=== PATIENT | female | born 1950 | race Caucasian/White ===

== ENCOUNTER 2021-05-15 13:28 | Emergency (ER) | payer MEDICARE ==
[~2021-05-15] VITALS: Ht 154.9 cm; Wt 72.3 kg
[2021-05-15] MEDS ORDERED: SIMVASTATIN40 MG PO (14:46)
[2021-05-15] MEDS ORDERED: CALCIUM + D SO1 EACH PO (14:46)
--- NOTE | 2021-05-15 17:45 | NUR ---
Zio monitor applied without difficulty. Patient verbalized understanding of instructions. Registered with [employer].
--- NOTE | 2021-05-15 21:19 | EKG ---
[facility] [address] [facility] [place], [place] [address] Signed Sinus bradycardia with marked sinus arrhythmia Otherwise normal ECG No previous ECGs available Confirmed by KESHA BLACK DO ([id number]) on 05/15/2021 9:19:21 PM Electronically Signed By: KESHA BLACK DO 05/15/212118 PATIENT NAME: EBONI BENJAMIN STEVE Electrocardiogram DATE OF : 50 PHYSICIAN: KESHA BLACK DO REPORT #: [id number] REPORT IS CONFIDENTIAL AND NOT TO BE RELEASED WITHOUT AUTHORIZATION
== END 2021-05-15 17:53 | disposition home or self-care (01) ==
LOC: ED 13:28
DX: R55 Syncope and collapse (principal); Z79.899 Other long term (current) drug therapy
CPT/HCPCS: 80053; 84484; 85025; 93005; 93010; 99284-25

== ENCOUNTER 2024-10-25 02:48 | Emergency (ER) | payer MEDICARE ==
[~2024-10-25] VITALS: Ht 154.9 cm; Wt 58.8 kg
[~2024-10-25 02:48] MED LIST: CALCIUM + D SO1 EACH PO; SIMVASTATIN40 MG PO
[2024-10-25] MEDS ORDERED: LACTATED RINGER'S 1,000 ML IV ONE (03:00)
[2024-10-25 03:13] LABS: BASOPHILS 0.3 % (0.1-1.2); EOSINOPHILS 0.5 % (0.7-5.8); LYMPHOCYTES 13.4 % (19.3-51.7); MCH 29.7 PG (25.6-32.2); MCHC 32.5 g/dL (32.2-35.5); MCV 91.4 fL (79.4-94.8); MONOCYTES 5.4 % (4.7-12.5); NEUTROPHILS 80.3 % (34.0-71.1); RBC 4.51 M/uL (3.93-5.22)
[2024-10-25] MEDS ORDERED: WOMEN'S 50 PLU1 EACH PO (03:13)
[2024-10-25] MEDS ORDERED: FAMOTIDINE 20 MG/ 2 ML VIAL IV ONE (03:15)
[2024-10-25 03:30] LABS: PHOSPHORUS, INORGANIC 3.3 mg/dL (2.5-4.9)
[2024-10-25 03:36] LABS: ALCOHOL, MEDICAL <3 ng/dL (<3); ALT (SGPT) 25 U/L (14-59); AST (SGOT) 34 U/L (15-37); GLOMERULAR FILTRATION RATE,EST 96 mL/min (>60); PROTEIN, TOTAL 7.3 g/dL (6.4-8.2); UREA NITROGEN 4 mg/dL (7-18)
[2024-10-25 05:12] LABS: BLOOD/HGB, URINE NEGATIVE (Negative); KETONE, URINE NEGATIVE (Negative); LEUK ESTERASE, URINE NEGATIVE (negative); NITRITE, URINE NEGATIVE (negative)
[2024-10-25 05:33] LABS: GLOMERULAR FILTRATION RATE,EST 97.0 mL/min (>60); UREA NITROGEN 3.0 mg/dL (7-18)
[2024-10-25 06:03] VITALS: BP 107/68
--- NOTE | 2024-10-25 21:56 | EKG ---
[facility] [address] [facility] [place] [address] Signed Sinus bradycardia Otherwise normal ECG When compared with ECG of 15-MAY-2021 14:46, No significant change was found Confirmed by Lana Lam MD () on 10/25/2024 9:55:48 PM Electronically Signed By: LANA LAM MD 10/25/24 2156 PATIENT NAME: SOURAVEBONI STEVE Electrocardiogram DATE OF : 50 PHYSICIAN: LANA LAM MD REPORT #: [id number] REPORT IS CONFIDENTIAL AND NOT TO BE RELEASED WITHOUT AUTHORIZATION
== END 2024-10-25 06:04 | disposition home or self-care (01) ==
LOC: ED 02:48
PROVIDERS: Internal Medicine
DX: E86.0 Dehydration (principal); R74.8 Abnormal levels of other serum enzymes; Z88.1 Allergy status to other antibiotic agents; Z88.5 Allergy status to narcotic agent; Z79.899 Other long term (current) drug therapy; Z90.711 Acquired absence of uterus with remaining cervical stump
CPT/HCPCS: 36415; 71045; 74177; 80048; 80053; 81003; 83690; 83735; 83880; 84100; 84484; 85025; 93005; 93010; 96361; 96375; 99284-25; G0480; J2405; J7121; Q9967

== ENCOUNTER 2025-04-18 03:40 | Emergency (ER) | payer MEDICARE ==
[~2025-04-18] VITALS: Ht 154.9 cm; Wt 58.8 kg
[~2025-04-18 03:40] MED LIST changes: +WOMEN'S 50 PLU1 EACH PO
[2025-04-18] MEDS ORDERED: LACTATED RINGER'S 1,000 ML IV ONE (03:45)
[2025-04-18 04:06] LABS: BASOPHILS 0.6 % (0.1-1.2); EOSINOPHILS 3.3 % (0.7-5.8); LYMPHOCYTES 44.0 % (19.3-51.7); MCH 29.2 PG (25.6-32.2); MCHC 31.8 g/dL (32.2-35.5); MCV 91.8 fL (79.4-94.8); MONOCYTES 8.3 % (4.7-12.5); NEUTROPHILS 43.6 % (34.0-71.1); RBC 4.89 M/uL (3.93-5.22)
[2025-04-18 04:27] LABS: INR 1.06 (0.80-1.30); PROTIME 13.2 Sec (11.2-14.2)
[2025-04-18 04:32] LABS: ALT (SGPT) 29.0 U/L (14-59); AST (SGOT) 40.0 U/L (15-37); GLOMERULAR FILTRATION RATE,EST 91.0 mL/min (>60); PROTEIN, TOTAL 6.9 g/dL (6.4-8.2); UREA NITROGEN 17.0 mg/dL (7-18)
[2025-04-18 05:40] LABS: BLOOD/HGB, URINE NEGATIVE (Negative); KETONE, URINE TRACE (Negative); LEUK ESTERASE, URINE TRACE (negative); NITRITE, URINE NEGATIVE (negative)
[2025-04-18 06:32] LABS: BACTERIA, URINE NONE SEEN /hpf (negative); CASTS, URINE NONE SEEN \\lpf; CRYSTALS, URINE NONE SEEN (0-1+); EPITHELIAL CELLS, URINE OCCASIONAL /lpf (0-1+); REFLEX CULTURE, URINE No (No)
[2025-04-18] MEDS ORDERED: AMOX TR-K CLV1 EAC1 PO (13:36)
--- NOTE | 2025-04-22 18:56 | EKG ---
[facility] [address] [facility] [place] [address] Signed Sinus bradycardia Otherwise normal ECG When compared with ECG of 25-OCT-2024 02:56, No significant change was found Confirmed by Lana Lam MD () on 04/22/2025 6:56:33 PM Electronically Signed By: LANA LAM MD 04/22/25 185 PATIENT NAME: SOURAVEBONI STEVE Electrocardiogram DATE OF : 50 PHYSICIAN: LANA LAM MD REPORT #: [id number] REPORT IS CONFIDENTIAL AND NOT TO BE RELEASED WITHOUT AUTHORIZATION
== END 2025-04-18 06:40 | disposition home or self-care (01) ==
LOC: ED 03:40
PROVIDERS: Family Medicine
DX: R55 Syncope and collapse (principal); E78.00 Pure hypercholesterolemia, unspecified; Z79.899 Other long term (current) drug therapy; Z88.5 Allergy status to narcotic agent
CPT/HCPCS: 36415; 80053; 81001; 83735; 84484; 85025; 85610; 93005; 93010; 99284; J7121

== ENCOUNTER 2025-04-18 11:00 | Emergency (ER) | payer MEDICARE ==
[~2025-04-18] VITALS: Ht 154.9 cm; Wt 58.8 kg
--- OUTSIDE RECORDS SUMMARY | 2025-04-18 11:07 | XMS ---
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 Tali VISIT COUNT (12 MO.) 3 [facility] TOTAL 3 NOTE: Visits indicate total known visits. 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
[2025-04-18 11:50] LABS: BASOPHILS 0.3 % (0.1-1.2); EOSINOPHILS 0.1 % (0.7-5.8); LYMPHOCYTES 7.2 % (19.3-51.7); MCH 29.9 PG (25.6-32.2); MCHC 32.7 g/dL (32.2-35.5); MCV 91.6 fL (79.4-94.8); MONOCYTES 7.2 % (4.7-12.5); NEUTROPHILS 84.9 % (34.0-71.1); RBC 5.01 M/uL (3.93-5.22)
[2025-04-18 11:52] LABS: BLOOD/HGB, URINE TRACE-I (Negative); KETONE, URINE NEGATIVE (Negative); LEUK ESTERASE, URINE NEGATIVE (negative); NITRITE, URINE NEGATIVE (negative)
[2025-04-18 12:13] LABS: BACTERIA, URINE NONE SEEN /hpf (negative); CASTS, URINE NONE SEEN \\lpf; CRYSTALS, URINE NONE SEEN (0-1+); EPITHELIAL CELLS, URINE SQUAMOUS 1+ /lpf (0-1+); REFLEX CULTURE, URINE No (No)
[2025-04-18 12:20] LABS: ALT (SGPT) 33.0 U/L (14-59); AST (SGOT) 35.0 U/L (15-37); GLOMERULAR FILTRATION RATE,EST 93.0 mL/min (>60); PROTEIN, TOTAL 7.4 g/dL (6.4-8.2); UREA NITROGEN 11.0 mg/dL (7-18)
[2025-04-18] MEDS ORDERED: AMOX TR-K CLV1 EAC1 PO (13:36)
[2025-04-18] MEDS ORDERED: AMOXICILLIN/CLAVULANATE K 875 MG TAB PO ONE (13:45)
== END 2025-04-18 13:49 | disposition home or self-care (01) ==
LOC: ED 11:00
PROVIDERS: Emergency Medicine
DX: K62.5 Hemorrhage of anus and rectum (principal); K52.9 Noninfective gastroenteritis and colitis, unspecified; Z59.89 Other problems related to housing and economic circumstances; Z88.5 Allergy status to narcotic agent; Z88.8 Allergy status to other drugs, medicaments and biological substances
CPT/HCPCS: 36415; 74177; 80053; 81001; 83690; 83735; 85025; 99284-25; Q9967